=== PATIENT | male | born 1975 | race Caucasian/White ===

== ENCOUNTER 2018-06-07 13:58 | Emergency (ER) | payer BC ==
[2018-06-07 14:45] VITALS: BP 108/78
--- NOTE | 2018-06-07 15:06 | ED ---
Lower Extremity - History of Current Complaint Chief Complaint: UCGeneralIllness Stated Complaint: S/P FALL LOWER BACK PAIN,RT KNEE Time Seen by Provider: 06/07/18 14:53 Hx Obtained From: Patient Mechanism Of Injury: Blunt Trauma Onset of Pain: Immediate Onset/Duration: Still Present Severity Initially: Moderate Severity Currently: Moderate Pain Intensity: 8 Pain Scale Used: 0-10 Numeric Timing: Constant, Lasting Hours Location: Radiates To Character Of Pain: Sharp Associated Signs And Symptoms: Positive: Knee Pain Aggravating Factor(s): Movement Able to Bear Weight: Yes - Risk Factors Gout Risk Factors: Negative DVT Risk Factors: Negative - Allergies/Home Medications Allergies/Adverse Reactions: Allergies Allergy/AdvReac Type Severity Reaction Status Date / Time Penicillins Allergy Itching Verified 06/07/18 14:36 Home Medications: Home Medications Amphetamine MIXED SALTS TAB* [Adderall TAB*] 1 tab DAILY 06/07/18 [History Confirmed 06/07/18] PMH/Surg Hx/FS Hx/Imm Hx Endocrine/Hematology History: Denies: Hx Diabetes Cardiovascular History: Denies: Hx Hypertension, Hx Pacemaker/ICD Respiratory History: Denies: Hx Asthma Musculoskeletal History: Reports: Hx Back Problems Sensory History: Denies: Hx Hearing Aid Neurological History: Reports: Other Neuro Impairments/Disorders Psychiatric History: Reports: Hx Substance Abuse Denies: Hx Panic Disorder - Surgical History Surgery Procedure, Year, and Place: LT KNEE ARTHROSCOPY,LT MIDDLE FINGER TENDON REPAIR Infectious Disease History: No Infectious Disease History: Denies: Traveled Outside the [place] in Last 30 Days - Social History Alcohol Use: Occasionally Substance Use Type: Reports: None Substance Use Comment - Amount & Last Used: 10/15/14 Smoking Status (MU): Heavy Every Day Tobacco Smoker Type: Cigarettes Amount Used/How Often: 1/2 PPD Have You Smoked in the Last Year: Yes Cessation Counseling: Patient Advised to Stop Review of Systems Constitutional: Negative Eyes: Negative ENT: Negative Cardiovascular: Negative Respiratory: Negative Gastrointestinal: Negative Genitourinary: Negative Musculoskeletal: Other Positive: Decreased ROM Skin: Negative Neurological: Other Positive: Paresthesia Psychological: Normal, Other - adhd All Other Systems Reviewed And Are Negative: Yes - Comments Additional Review of Systems Comments: patient with multiple prescriptions for adderal and alprazolam Physical Exam Triage Information Reviewed: Yes Vital Signs On Initial Exam: Initial Vitals Temp Pulse Resp BP Pulse Ox 37.2 C 120 20 108/78 99 06/07/18 14:37 06/07/18 14:37 06/07/18 14:37 06/07/18 14:37 06/07/18 14:37 Vital Signs Reviewed: Yes Appearance: Positive: Well-Appearing, Pain Distress Skin: Positive: Warm Head/Face: Positive: Normal Head/Face Inspection Eyes: Positive: Normal ENT: Positive: Normal ENT inspection Neck: Positive: Supple Respiratory/Lung Sounds: Positive: Clear to Auscultation Cardiovascular: Positive: Normal Abdomen Description: Positive: Nontender Bowel Sounds: Positive: Present Musculoskeletal: Positive: Normal, Limited @, Other - decreased ROM of the right knee, no effusion, extension to 180 flexion to 110 negative Chuck Neurological: Positive: Normal Gait, Other - patient with dysesthesia on the right lateral leg, strength and dtrs symmetrical normal heel and toe walking, Psychiatric: Positive: Normal - [place] Coma Scale Best Eye Response: 4 - Spontaneous Best Motor Response: 6 - Obeys Commands Best Verbal Response: 5 - Oriented Coma Scale Total: 15 Diagnostics - Vital Signs Vital Signs Temp Pulse Resp BP Pulse Ox 06/07/18 14:37 37.2 C 120 20 108/78 99 - Laboratory Lab Statement: Any lab studies that have been ordered have been reviewed, and results considered in the medical decision making process. Lower Extremity Course/Dx - Course Course Of Treatment: patient given toradol, ice to knee, xrays negative. recommend bedrest , NSAIDS,. no evidence muscular weakness,. Patient with no evidence or ecchymosis or scratch seen. possible drug seeking behavior - Diagnoses Provider Diagnoses: Knee sprain Discharge - Sign-Out/Discharge Documenting (check all that apply): Patient Departure - discharged to home - Discharge Plan Condition: Fair Disposition: HOME Referrals: No Primary Care Phys,NOPCP [Primary Care Provider] - - Billing Disposition and Condition Condition: FAIR Disposition: Home
--- NOTE | 2018-06-07 15:16 | RAD ---
Indication: Right knee pain. 4 views of the right knee are reviewed. There is joint space narrowing in the lateral compartment with subchondral eburnation and osteophyte formation. Small joint effusion is noted. Mild degenerative changes of the patellofemoral joint is noted. IMPRESSION: Degenerative joint disease in the lateral compartment of the right knee. There may be a small joint effusion noted.
[2018-06-07] MEDS ORDERED: Ketorolac INJ* 60 MG/2 ML VIAL IM ONE (15:19)
== END 2018-06-07 16:11 | disposition home or self-care (01) ==
LOC: UCCORT 13:58
DX: S83.91XA Sprain of unspecified site of right knee, initial encounter (principal); W19.XXXA Unspecified fall, initial encounter; Y93.9 Activity, unspecified; Y92.9 Unspecified place or not applicable; M54.5 Low back pain; Z88.0 Allergy status to penicillin; F17.210 Nicotine dependence, cigarettes, uncomplicated
CPT/HCPCS: 96372; 99212; G0463; J1885